=== PATIENT | male | born 1970 | race Caucasian/White ===

== ENCOUNTER 2020-04-12 13:25 | Emergency (ER) | payer SELFPAY ==
[~2020-04-12] VITALS: Ht 177.8 cm; Wt 112.5 kg
[2020-04-12 13:44] VITALS: Ht 177.8 cm; Wt 112.5 kg
[2020-04-12 17:00] VITALS: BP 141/99
== END 2020-04-12 17:00 | disposition home or self-care (01) ==
LOC: ED 13:25
DX: S61.213A Laceration without foreign body of left middle finger without damage to nail, initial encounter (principal); S61.215A Laceration without foreign body of left ring finger without damage to nail, initial encounter; W26.8XXA Contact with other sharp object(s), not elsewhere classified, initial encounter; Y93.89 Activity, other specified; Y92.89 Other specified places as the place of occurrence of the external cause; Y99.8 Other external cause status
CPT/HCPCS: 90715; J2001